=== PATIENT | female | born 1995 | race Two or more races ===

== ENCOUNTER 2016-07-27 16:16 | Emergency (ER) | payer OTHER ==
[~2016-07-27] VITALS: Ht 157.5 cm; Wt 81.6 kg
[2016-07-27 17:15] VITALS: BP 118/77
== END 2016-07-27 17:40 | disposition home or self-care (01) ==
LOC: ER 16:25
DX: J20.9 Acute bronchitis, unspecified (principal)

== ENCOUNTER 2022-12-12 08:34 | Emergency (ER) | payer MEDICAID, OTHER ==
[~2022-12-12] VITALS: Ht 154.9 cm; Wt 87.6 kg
[2022-12-12] MEDS ORDERED: ETOMIDATE (2MG/ML) 20ML VIAL IV ONE (09:30)
[2022-12-12] MEDS ORDERED: KETOROLAC TROMETH 30 MG/ML 1ML VIAL IV ONE (11:15)
[2022-12-12 11:17] VITALS: BP 111/71
== END 2022-12-12 11:47 | disposition home or self-care (01) ==
LOC: ER 08:34
DX: S43.004A Unspecified dislocation of right shoulder joint, initial encounter (principal); W18.39XA Other fall on same level, initial encounter; Y93.89 Activity, other specified; Y92.89 Other specified places as the place of occurrence of the external cause; Y99.8 Other external cause status
CPT/HCPCS: 23650; 73020; 73030; 96374; 99152; 99285; J1885; 96375